=== PATIENT | female | born 1980 | race Hispanic/Latino ===

== ENCOUNTER 2017-05-07 15:41 | Emergency (ER) | payer MEDICAID ==
[2017-05-07 15:52] VITALS: BP 116/73; PULSE 100; RESP 16; TEMP 98.6; O2SAT 97
--- NOTE | 2017-05-07 16:38 | ED PDOC ---
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 Denied head or neck injury. Patient stated she took her Vimpat medication this morning. PMD: Susan Garay MD Past Medical History Reviewed: Historical Data, Nursing Documentation, Vital Signs Vital Signs: Last Vital Signs Temp 98.6 F 05/07/17 15:43 Pulse 100 H 05/07/17 15:43 Resp 16 05/07/17 15:43 BP 116/73 05/07/17 15:43 Pulse Ox 97 05/07/17 16:52 - Medical History PMH: Bronchitis, Seizures Denies: Alzheimer's Disease, Asthma, Atrial Fibrillation, CAD, Cardia Arrhythmia, CHF, COPD, Dementia, Emphysema, HIV, HTN, Hypercholesterolemia, Migraine, Mitral Valve Prolapse, Multiple Sclerosis, Parkinson's Disease, Peripheral Edema, Pneumonia, Pulmonary Embolism, Sleep Apnea, TIA - Surgical History Surgical History: (X 1) Denies: Pacemaker - Family History Family History: States: Unknown Family Hx - Social History Current smoker - smoking cessation education provided: No Ex-Smoker (has not smoked in the last 12 months): Yes Alcohol: None Drugs: Cannabis - Home Medications Home Medications: Ambulatory Orders Medication Instructions Recorded Lacosamide [Vimpat] 100 mg PO BID #60 tab 05/29/14 diaZEpam [Valium] 5 mg PO Q8 PRN #20 tab 10/20/15 traMADol [Ultram] 50 mg PO TID PRN #15 tab 10/20/15 Albuterol/Ipratropium [Duoneb 3 3 ml IH QID PRN #0 neb 11/10/ MG/3 Ml-0.5 MG/3 Ml 3 Ml] Guaifenesin [Mucinex] 600 mg PO Q12 #0 tab.er.12h 11/10/15 Levofloxacin [Levaquin] 750 mg PO DAILY #7 tablet 11/10/15 methylPREDNISolone [Medrol] 16 mg PO DAILY #0 tab 11/10/15 Acetaminophen/Butalbital/Caf 1 - 2 tab PO Q6 PRN #20 tab 01/20/16 [Fioricet] - Allergies Allergies/Adverse Reactions: Allergies Allergy/AdvReac Type Severity Reaction Status Date / Time levetiracetam [From [facility]] Allergy RASH Verified 10/20/15 12:47 Review of Systems ROS Statement: Except As Marked, All Systems Reviewed And Found Negative Musculoskeletal: Negative for: Other (head/neck injury) Neurological: Positive for: Seizures (bit tongue) Physical Exam - Reviewed Nursing Documentation Reviewed: Yes Vital Signs Reviewed: Yes - Physical Exam Appears: Positive for: Well, Non-toxic, No Acute Distress Head Exam: Positive for: ATRAUMATIC, NORMAL INSPECTION, NORMOCEPHALIC Eye Exam: Positive for: EOMI, Normal appearance, PERRL Neck: Positive for: Normal, Painless ROM, Supple. Negative for: Limited ROM Cardiovascular/Chest: Positive for: Regular Rate, Rhythm Respiratory: Positive for: Normal Breath Sounds, Respiratory Distress Extremity: Positive for: Normal ROM Neurologic/Psych: Positive for: Alert (x3), job forwarder II-XII (intact), Oriented - ECG O2 Sat by Pulse Oximetry: 97 (RA) Pulse Ox Interpretation: Normal Medical Decision Making Medical Decision Making: Initial Impression: Seizure disorder Initial Plan: * Motrin 600mg PO Time: 1640 --Patient stated she is feeling better in ED and requesting discharge AMA. The provider has personally explained to the patient that choosing to do so may result in permanent bodily harm or . The provider discussed at great length that without further evaluation and monitoring there may be unforeseen circumstances and/or deterioration causing permanent bodily harm or as a result of their choice. The patient verbalized these risks back to the physician in laymans terms. The patient is alert, oriented, and shows the mental capacity to make clear decisions regarding the patients health care at this time. The patient continues to wish to leave against medical advice. bag making machine operator Quynh Enriqued used for all interpretation, history and exam, along w explaining risks of leaving AMA. Scribe Attestation: Documented by Gretel Serna, acting as a scribe for Edy Xiong III, DO. Provider Scribe Attestation: All medical record entries made by the Scribe were at my direction and personally dictated by me. I have reviewed the chart and agree that the record accurately reflects my personal performance of the history, physical exam, medical decision making, and the department course for this patient. I have also personally directed, reviewed, and agree with the discharge instructions and disposition. Disposition - Clinical Impression Clinical Impression: Seizure disorder, Left against medical advice - Patient ED Disposition Is Patient to be Admitted: No Counseled Patient/Family Regarding: Studies Performed, Diagnosis, Need For Followup - Disposition Referrals: Alvarez Duncan MD [Staff Provider] - Disposition: Against Medical Advice Disposition Time: 16:50 Condition: STABLE Additional Instructions: Take medications as directed. Return to ER for any return of symptoms. YOU LEFT HOSPITAL AGAINST MEDICAL ADVICE TODAY. RETURN AT ANYTIME FOR COMPLETION OF TREATMENT. Instructions: Epilepsy (ED), Against Medical Advice (ED) Forms: [employer] (Spanish)
== END 2017-05-07 17:01 | disposition left against medical advice (07) ==
LOC: H.ER 15:41
DX: G40.909 Epilepsy, unspecified, not intractable, without status epilepticus (principal)

== ENCOUNTER 2017-09-01 14:21 | Emergency (ER) | payer MEDICAID ==
[2017-09-01 16:31] LABS: BASO # 0.1 K/uL (0.0-0.2); BASO % 1.1 % (0.0-2.0); EOS # 0.4 K/uL (0.0-0.7); EOS % 4.2 % (0.0-4.0); LYMPH # 2.2 K/uL (1.0-4.3); LYMPH % 26.3 % (20.0-40.0); MEAN CELL VOLUME 92.3 fl (81.0-99.0); MEAN CORPUSCULAR HGB CONC 32.5 g/dL (33.0-37.0); MONO # 0.5 K/uL (0.0-0.8); MONO % 6.1 % (0.0-10.0); NEUT # 5.3 K/uL (1.8-7.0); NEUT % 62.3 % (50.0-75.0); NRBC % 0.1 % (0.0-0.0); RED CELL DISTRIBUTION WIDTH 14.5 % (11.5-14.5); WHITE BLOOD COUNT 8.5 K/uL (4.8-10.8)
[2017-09-01 16:41] LABS: ALB/GLOB RATIO 1.2 (1.0-2.1); ALCOHOL SERUM < 10 mg/dl (0-10); ALKALINE PHOSPHATASE 94 U/L (38-126); ALT/SGPT 15 U/L (9-52); AST/SGOT 23 U/L (14-36); BILIRUBIN,TOTAL 0.3 mg/dl (0.2-1.3); BLOOD UREA NITROGEN 10 mg/dl (7-17); CALCIUM 9.5 mg/dL (8.4-10.2); CARBON DIOXIDE 13 mmol/L (22-30); CHLORIDE 106 mmol/L (98-107); GFR AFRICAN-AMERICAN > 60; GLUCOSE,RANDOM 161 mg/dL (65-105); LIPASE 264 U/L (23-300); PARTIAL THROMBOPLASTIN TIME 31.5 Seconds (25.6-37.1); POTASSIUM 2.9 MMOL/L (3.6-5.0); SODIUM 141 mmol/l (132-148); TOTAL PROTEIN 8.2 G/DL (6.3-8.2)
[2017-09-01] MEDS ORDERED: Potassium Chloride 20 mEq ER Tab PO ONE ×2 (17:24→18:10)
[2017-09-01] MEDS ORDERED: Sodium Chloride 0.9% 1,000 ML IV ONE (17:24)
[2017-09-01] MEDS ORDERED: Sodium Chloride 0.9% 500 ML IV ONE (17:25)
--- NOTE | 2017-09-01 17:56 | ED PDOC ---
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 denies: Bit Tongue, Incontinence Of Urine, Incontinence Of Stool Post-ictal Period: Yes Severity: Moderate Additional History Per: Patient Past Medical History Reviewed: Historical Data, Nursing Documentation, Vital Signs Vital Signs: Last Vital Signs Temp 97 F L 09/01/17 18:14 Pulse 85 09/01/17 18:14 Resp 17 09/01/17 18:14 BP 126/80 09/01/17 18:14 Pulse Ox 100 09/01/17 18:14 - Medical History PMH: Bronchitis, Seizures Denies: Alzheimer's Disease, Asthma, Atrial Fibrillation, CAD, Cardia Arrhythmia, CHF, COPD, Dementia, Emphysema, HIV, HTN, Hypercholesterolemia, Migraine, Mitral Valve Prolapse, Multiple Sclerosis, Parkinson's Disease, Peripheral Edema, Pneumonia, Pulmonary Embolism, Sleep Apnea, TIA - Surgical History Surgical History: (X 1) Denies: Pacemaker - Family History Family History: States: Unknown Family Hx - Living Arrangements Living Arrangements: With Family - Social History Current smoker - smoking cessation education provided: No - Home Medications Home Medications: Ambulatory Orders Medication Instructions Recorded Lacosamide [Vimpat] 100 mg PO BID #60 tab 05/29/14 diaZEpam [Valium] 5 mg PO Q8 PRN #20 tab 10/20/15 traMADol [Ultram] 50 mg PO TID PRN #15 tab 10/20/15 Albuterol/Ipratropium [Duoneb 3 3 ml IH QID PRN #0 neb 11/10/15 MG/3 Ml-0.5 MG/3 Ml 3 Ml] Guaifenesin [Mucinex] 600 mg PO Q12 #0 tab.er.12h 11/10/15 Levofloxacin [Levaquin] 750 mg PO DAILY #7 tablet 11/10/15 methylPREDNISolone [Medrol] 16 mg PO DAILY #0 tab 11/10/15 Acetaminophen/Butalbital/Caf 1 - 2 tab PO Q6 PRN #20 tab 01/20/16 [Fioricet] Multivit/Folic Acid/I 1 tab PO DAILY #30 tab 04/17/17 [ Plus] - Allergies Allergies/Adverse Reactions: Allergies Allergy/AdvReac Type Severity Reaction Status Date / Time levetiracetam [From [facility]] Allergy RASH Verified 10/20/15 12:47 Review of Systems ROS Statement: Except As Marked, All Systems Reviewed And Found Negative Constitutional: Negative for: Fever, Chills Cardiovascular: Negative for: Chest Pain, Palpitations Respiratory: Negative for: Cough, Shortness of Breath Gastrointestinal: Negative for: Nausea, Vomiting, Abdominal Pain Musculoskeletal: Positive for: Neck Pain Neurological: Positive for: Headache. Negative for: Weakness, Numbness, Confusion, Seizures, Altered Mental Status, Dizziness Physical Exam - Reviewed Nursing Documentation Reviewed: Yes Vital Signs Reviewed: Yes - Physical Exam Appears: Positive for: Uncomfortable Head Exam: Positive for: ATRAUMATIC, NORMAL INSPECTION, NORMOCEPHALIC Eye Exam: Positive for: Normal appearance, EOMI, PERRL ENT: Negative for: Nasal Congestion, Pharyngeal Erythema, Tonsillar Exudate, Tonsillar Swelling Neck: Positive for: Painless ROM, Supple, Pain On Movement Of Neck. Negative for: Decreased ROM, Limited ROM, Trachea Midline Cardiovascular/Chest: Positive for: Regular Rate, Rhythm, Chest Non Tender. Negative for: Edema, Gallop, Murmur, Bradycardia, Tachycardia, Ectopy, Friction Rub, Irregularly Irregular Respiratory: Positive for: Normal Breath Sounds. Negative for: Decreased Breath Sounds, Accessory Muscle Use, Crackles, Rales, Rhonchi, Stridor, Wheezing , Respiratory Distress, Plerual Rub Pulses-Radial (L): 2+ Pulses-Radial (R): 2+ Gastrointestinal/Abdominal: Positive for: Normal Exam, Bowel Sounds, Soft. Negative for: Tenderness, Organomegaly, Mass, Distended, Guarding, Rebound, Hernia, Asicites Back: Positive for: Normal Inspection. Negative for: L CVA Tenderness, R CVA Tenderness, Vertebral Tenderness Extremity: Positive for: Normal ROM. Negative for: Tenderness, Pedal Edema, Calf Tenderness, Deformity, Swelling Neurologic/Psych: Positive for: Alert, instructional technology teacher II-XII, Oriented, Mood/Affect (calm) , Cerebellar Tests (nml). Negative for: Motor/Sensory Deficits, Aphasia, Facial Droop - Laboratory Results Result Diagrams: 09/01/17 16:26 09/01/17 16:26 - ECG O2 Sat by Pulse Oximetry: 96 Pulse Ox Interpretation: Normal - Progress ED Course And Treament: will d/c home. Re-evaluation Time: 20:05 Condition: Improved Disposition - Clinical Impression Clinical Impression: Recurrent seizures - Patient ED Disposition Is Patient to be Admitted: No Counseled Patient/Family Regarding: Studies Performed, Diagnosis, Need For Followup - Disposition Referrals: [facility] [Outside] (2 to 3 days) Disposition: Routine/Home Disposition Time: 20:06 Condition: GOOD Instructions: Recurrent Seizures in Adults (ED) Forms: [employer] (Danish)
[2017-09-01 18:14] VITALS: BP 126/80; PULSE 85; RESP 17; TEMP 97
--- NOTE | 2017-09-01 19:53 | CT ---
EXAM: CT Head Without Intravenous Contrast CLINICAL HISTORY: 37 years old, female; Injury or trauma and signs and symptoms; Injury Seizured/ falling; Initial encounter; Laceration; Without loss of consciousness; Without residual foreign body; Head, generalized; Other: Alberto's neck tenderness; Injury date: Today; Patient HX: Zachery asthma TECHNIQUE: Axial computed tomography images of the head/brain without intravenous contrast. All CT scans at this facility use one or more dose reduction techniques, viz.: automated exposure control; ma/kV adjustment per patient size (including targeted exams where dose is matched to indication; i.e. head); or iterative reconstruction technique. Coronal and sagittal reformatted images were created and reviewed. COMPARISON: CT - HEAD W/O CONTRAST 2016-01-19 23:31 FINDINGS: Brain: No intracranial hemorrhage. No mass. Dilated perivascular space vs chronic lacunar infarct about RIGHT basal ganglia. No edema. Ventricles: No hydrocephalus. Bones/joints: No acute fracture. Soft tissues: Mild parietal soft tissue swelling. Sinuses: No acute sinusitis. Mastoid air cells: No mastoid effusion. Orbits: Unremarkable as visualized. IMPRESSION: 1. No intracranial hemorrhage. 2. Incidental/non-acute findings are described above.
--- NOTE | 2017-09-01 19:56 | CT ---
EXAM: CT Cervical Spine Without Intravenous Contrast CLINICAL HISTORY: 37 years old, female; Injury or trauma; Injury Seizured falling. Alberto's neck tenderness; Initial encounter; Laceration; Without foreign body; Injury date: Today TECHNIQUE: Axial computed tomography images of the cervical spine without intravenous contrast. All CT scans at this facility use one or more dose reduction techniques, viz.: automated exposure control; ma/kV adjustment per patient size (including targeted exams where dose is matched to indication; i.e. head); or iterative reconstruction technique. Coronal and sagittal reformatted images were created and reviewed. COMPARISON: CR - CERVICAL SPINE AP LATERAL 2015-10-20 13:21 FINDINGS: Vertebrae: No acute fracture. Discs/spinal canal/neural foramina: Minimal spondylosis. No significant central canal stenosis. Neuroforaminal narrowing with mid cervical spine. Soft tissues: Unremarkable. Lung apices: Unremarkable as visualized. IMPRESSION: 1. No fracture. 2. Incidental/non-acute findings are described above.
[2017-09-01 20:07] VITALS: O2SAT 96
== END 2017-09-01 20:30 | disposition home or self-care (01) ==
LOC: H.ER 14:21
DX: G40.909 Epilepsy, unspecified, not intractable, without status epilepticus (principal)
CPT/HCPCS: 70450; 72125; 80053; 80320; 80324; 80345; 80346; 80349; 80353; 80358; 80361; 81025; 83690; 83992; 84484; 85025; 85610; 85730; 96374; 99285; J2405; J7040

== ENCOUNTER 2017-09-10 16:06 | Emergency (ER) | payer MEDICAID ==
[2017-09-10 16:21] VITALS: BP 101/54; PULSE 67; RESP 16; TEMP 97.2; O2SAT 100
[2017-09-10] MEDS ORDERED: Sodium Chloride 0.9% 1,000 ML IV SCH (17:15)
--- NOTE | 2017-09-10 17:22 | ED PDOC ---
HPI: Headache Time Seen by Provider: 09/10/17 17:00 Chief Complaint (Nursing): Headache Chief Complaint (Provider): Headache History Per: Patient History/Exam Limitations: no limitations Onset/Duration Of Symptoms: Days (x9) Additional Complaint(s): Margaret Park is a 37 year old female that presents to the ED with a chief complaint of a pounding migraine with associated sharp neck pain that she has been experiencing for the past 9 days. Patient has a history of seizures, and reports that on 09/01/17, she was doing her laundry when she had a seizure. Patient states that she lost consciousness, but upon returning to consciousness reports that she has severe head pain in the middle of her head radiating down her neck. Patient came to ED on 09/01/[address] Scan, which was interpreted as normal, but states that her pain persists, prompting her ED visit. Of Note: Patient is hard of hearing. Neurologist: Dr. Nice Past Medical History Reviewed: Historical Data, Nursing Documentation, Vital Signs Vital Signs: Last Vital Signs Temp 97.2 F L 09/10/17 16:18 Pulse 67 09/10/17 16:18 Resp 16 09/10/17 16:18 BP 101/54 L 09/10/17 16:18 Pulse Ox 100 09/10/17 16:18 - Medical History PMH: Bronchitis, Seizures Denies: Alzheimer's Disease, Asthma, Atrial Fibrillation, CAD, Cardia Arrhythmia, CHF, COPD, Dementia, Emphysema, HIV, HTN, Hypercholesterolemia, Migraine, Mitral Valve Prolapse, Multiple Sclerosis, Parkinson's Disease, Peripheral Edema, Pneumonia, Pulmonary Embolism, Sleep Apnea, TIA - Surgical History Surgical History: (X 1) Denies: Pacemaker - Family History Family History: States: Unknown Family Hx - Home Medications Home Medications: Ambulatory Orders Medication Instructions Recorded Lacosamide [Vimpat] 100 mg PO BID #60 tab 05/29/14 diaZEpam [Valium] 5 mg PO Q8 PRN #20 tab 10/20/15 traMADol [Ultram] 50 mg PO TID PRN #15 tab 10/20/15 Albuterol/Ipratropium [Duoneb 3 3 ml IH QID PRN #0 neb 02/ MG/3 Ml-0.5 MG/3 Ml 3 Ml] Guaifenesin [Mucinex] 600 mg PO Q12 #0 tab.er.12h 11/10/15 Levofloxacin [Levaquin] 750 mg PO DAILY #7 tablet 11/10/15 methylPREDNISolone [Medrol] 16 mg PO DAILY #0 tab 11/10/15 Acetaminophen/Butalbital/Caf 1 - 2 tab PO Q6 PRN #20 tab 01/20/16 [Fioricet] Multivit/Folic Acid/I 1 tab PO DAILY #30 tab 04/17/17 [ Plus] Naproxen 1 tab PO Q12 PRN #14 tab 09/10/17 - Allergies Allergies/Adverse Reactions: Allergies Allergy/AdvReac Type Severity Reaction Status Date / Time levetiracetam [From [facility]] Allergy RASH Verified 09/10/17 16:17 Review of Systems Musculoskeletal: Positive for: Neck Pain Neurological: Positive for: Headache Physical Exam - Reviewed Nursing Documentation Reviewed: Yes Vital Signs Reviewed: Yes - Physical Exam Appears: Positive for: Non-toxic, No Acute Distress Head Exam: Positive for: NORMOCEPHALIC. Negative for: ATRAUMATIC (Tenderness noted to posterior aspect of head, not involving C-Spine.) Skin: Positive for: Normal Color, Warm Eye Exam: Positive for: Normal appearance, EOMI, PERRL Neck: Positive for: Normal, Painless ROM, Supple Neurologic/Psych: Positive for: Alert, Oriented, Gait (Steady). Negative for: Motor/Sensory Deficits, Aphasia, Facial Droop - ECG O2 Sat by Pulse Oximetry: 100 (RA) Pulse Ox Interpretation: Normal - Progress ED Course And Treament: TORADOL 30 MG IV X 1 DOSE WITH MILD RELIEF DECADRON 10 MG IM X [address] IMPRESSION: No acute intracranial hemorrhage. Medical Decision Making Medical Decision Making: Impression: Head Injury Plan: * CT Head w/o contrast * Urine Preg * Toradol 30 mg IV * NaCl 1000 mLs at 1000 mLs/hr * Reevaluation Scribe Attestation: Documented by Krista Moreland, acting as a scribe for Dewayne Matthews PA-C. Provider Scribe Attestation: All medical record entries made by the Scribe were at my direction and personally dictated by me. I have reviewed the chart and agree that the record accurately reflects my personal performance of the history, physical exam, medical decision making, and the department course for this patient. I have also personally directed, reviewed, and agree with the discharge instructions and disposition. Disposition - Clinical Impression Clinical Impression: Headache - Patient ED Disposition Is Patient to be Admitted: No - Disposition Disposition: Routine/Home Disposition Time: 19:24 Condition: FAIR Prescriptions: Naproxen 1 tab PO Q12 PRN #14 tab PRN Reason: Pain, Moderate (4-7) Instructions: Head Injury (ED), Acute Headache (DC) Forms: [employer] (Italian), [facility] ED School/Work Excuse
--- NOTE | 2017-09-10 18:29 | CT ---
PROCEDURE: CT scan brain dated 09/10/2017. HISTORY: HEAD INJURY COMPARISON: None available. TECHNIQUE: Axial computed tomography images were obtained through the head/brain without intravenous contrast. Radiation dose: Total exam DLP = mGy-cm. This CT exam was performed using one or more of the following dose reduction techniques: Automated exposure control, adjustment of the mA and/or kV according to patient size, and/or use of iterative reconstruction technique. FINDINGS: HEMORRHAGE: No acute parenchymal, subarachnoid or extra-axial hemorrhage. BRAIN: No evidence of large acute infarct. VENTRICLES: No obstructive hydrocephalus. CALVARIUM: There are no acute calvarial fractures. PARANASAL SINUSES: Unremarkable as visualized. No significant inflammatory changes. MASTOID AIR CELLS: Unremarkable as visualized. No inflammatory changes. OTHER FINDINGS: None. IMPRESSION: No acute intracranial hemorrhage.
[2017-09-10] MEDS ORDERED: Dexamethasone 4 mg/1 ml ONE (19:30)
== END 2017-09-10 19:47 | disposition home or self-care (01) ==
LOC: H.ER 16:06
DX: S09.90XA Unspecified injury of head, initial encounter (principal); W19.XXXA Unspecified fall, initial encounter; Y92.89 Other specified places as the place of occurrence of the external cause; G40.909 Epilepsy, unspecified, not intractable, without status epilepticus
CPT/HCPCS: 70450; 81025; 96372; 96374; 99284; J1100; J1885; J7040

== ENCOUNTER 2018-02-08 13:13 | Emergency (ER) | payer MEDICAID ==
[2018-02-08 13:43] VITALS: TEMP 98.1; O2SAT 99
[2018-02-08 13:49] VITALS: RESP 18
[2018-02-08 14:33] LABS: BASO # 0.1 K/uL (0.0-0.2); BASO % 1.3 % (0.0-2.0); EOS # 0.3 K/uL (0.0-0.7); EOS % 5.5 % (0.0-4.0); HEMOGLOBIN 12.3 g/dL (12.0-16.0); LYMPH # 1.6 K/uL (1.0-4.3); MEAN CORPUSCULAR HEMOGLOBIN 31.3 pg (27.0-31.0); MEAN CORPUSCULAR HGB CONC 34.8 g/dL (33.0-37.0); MEAN PLATELET VOLUME 7.8 fl (7.2-11.7); MONO # 0.5 K/uL (0.0-0.8); MONO % 9.9 % (0.0-10.0); NEUT # 2.4 K/uL (1.8-7.0); NEUT % 50.3 % (50.0-75.0); NRBC % 0.1 % (0.0-0.0); RBC 3.92 Mil/uL (3.80-5.20); RED CELL DISTRIBUTION WIDTH 14.9 % (11.5-14.5); WHITE BLOOD COUNT 4.8 K/uL (4.8-10.8)
[2018-02-08 14:46] LABS: ALB/GLOB RATIO 1.1 (1.0-2.1); ALT/SGPT 116 U/L (9-52); AST/SGOT 58 U/L (14-36); BLOOD UREA NITROGEN 5 mg/dl (7-17); CALCIUM 9.6 mg/dL (8.4-10.2); GFR AFRICAN-AMERICAN > 60; GFR NON-AFRICAN AMERICAN > 60
--- NOTE | 2018-02-08 15:11 | CT ---
PROCEDURE: CT HEAD WITHOUT CONTRAST. HISTORY: head injury, seizure COMPARISON: Unenhanced head CT 09/10/2017. TECHNIQUE: Axial computed tomography images were obtained through the head/brain without intravenous contrast. Radiation dose: Total exam DLP = 786.68 mGy-cm. This CT exam was performed using one or more of the following dose reduction techniques: Automated exposure control, adjustment of the mA and/or kV according to patient size, and/or use of iterative reconstruction technique. FINDINGS: HEMORRHAGE: No intracranial hemorrhage. BRAIN: Normal barragan-white matter differentiation and density are appreciated throughout the cerebrum and cerebellum with the brainstem appearing unremarkable as well. There is no mass effect. There is no suspicious extra-axial fluid collection and the midline brain anatomy appears diffusely unremarkable. VENTRICLES: Unremarkable. No hydrocephalus. CALVARIUM: Unremarkable. PARANASAL SINUSES: Unremarkable as visualized. No significant inflammatory changes. MASTOID AIR CELLS: Unremarkable as visualized. No inflammatory changes. OTHER FINDINGS: None. IMPRESSION: Stable appearing unremarkable unenhanced head CT.
--- NOTE | 2018-02-08 15:17 | ED PDOC ---
HPI: Headache Time Seen by Provider: 02/08/18 13:46 Chief Complaint (Nursing): Headache Chief Complaint (Provider): Confusion, Dizzines History Per: Patient History/Exam Limitations: no limitations Onset/Duration Of Symptoms: Days (x5) Current Symptoms Are (Timing): Still Present Additional Complaint(s): 37 year old female presented to ED with complaints of confusion and dizziness. Patient reports that on February 04, she was walking in the hallway and the next thing she remembers is waking up in her bed. 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 Her roommate indicates that patient was found on the floor and did not witness her having shaking like movements. Patient's last seizure was May 2017. She further states that she started Vimpat 150mg BID prescribed by Dr. Nice because she developed a rash from Kepra. She denies incontinence, oral injury, vomiting, weakness, CP, and abdominal pain. PCP: Donya Kimble Past Medical History Reviewed: Historical Data, Nursing Documentation, Vital Signs Vital Signs: Last Vital Signs Temp 98.1 F 02/08/18 13:45 Pulse 60 02/08/18 13:45 Resp 18 02/08/18 13:45 BP 110/76 02/08/18 13:45 Pulse Ox 99 02/08/18 13:45 - Medical History PMH: Bronchitis, Seizures Denies: Alzheimer's Disease, Asthma, Atrial Fibrillation, CAD, Cardia Arrhythmia, CHF, COPD, Dementia, Emphysema, HIV, HTN, Hypercholesterolemia, Migraine, Mitral Valve Prolapse, Multiple Sclerosis, Parkinson's Disease, Peripheral Edema, Pneumonia, Pulmonary Embolism, Sleep Apnea, TIA - Surgical History Surgical History: (X 1) Denies: Pacemaker - Family History Family History: States: Unknown Family Hx - Social History Current smoker - smoking cessation education provided: No Alcohol: None Drugs: Denies - Home Medications Home Medications: Ambulatory Orders Medication Instructions Recorded Lacosamide [Vimpat] 100 mg PO BID #60 tab 05/29/14 diaZEpam [Valium] 5 mg PO Q8 PRN #20 tab 10/20/15 traMADol [Ultram] 50 mg PO TID PRN #15 tab 10/20/15 Albuterol/Ipratropium [Duoneb 3 3 ml IH QID PRN #0 neb 11/10/15 MG/3 Ml-0.5 MG/3 Ml 3 Ml] Guaifenesin [Mucinex] 600 mg PO Q12 #0 tab.er.12h 11/10/15 Levofloxacin [Levaquin] 750 mg PO DAILY #7 tablet 11/10/15 methylPREDNISolone [Medrol] 16 mg PO DAILY #0 tab 11/10/15 Acetaminophen/Butalbital/Caf 1 - 2 tab PO Q6 PRN #20 tab 01/20/16 [Fioricet] Multivit/Folic Acid/I 1 tab PO DAILY #30 tab 04/17/17 [ Plus] Naproxen 1 tab PO Q12 PRN #14 tab 09/10/17 Naproxen [Naprosyn] 500 mg PO BID PRN #14 tab 02/08/18 - Allergies Allergies/Adverse Reactions: Allergies Allergy/AdvReac Type Severity Reaction Status Date / Time levetiracetam [From [facility]] Allergy RASH Verified 09/10/17 16:17 Review of Systems ROS Statement: Except As Marked, All Systems Reviewed And Found Negative Constitutional: Negative for: Weakness ENT: Negative for: Other (oral injury) Cardiovascular: Negative for: Chest Pain Gastrointestinal: Negative for: Vomiting, Abdominal Pain Genitourinary Female: Negative for: Incontinence Neurological: Positive for: Confusion, Dizziness Physical Exam - Reviewed Nursing Documentation Reviewed: Yes Vital Signs Reviewed: Yes - Physical Exam Appears: Positive for: Non-toxic, No Acute Distress Head Exam: Positive for: ATRAUMATIC, NORMAL INSPECTION, NORMOCEPHALIC Skin: Positive for: Normal Color, Warm, DRY Eye Exam: Positive for: EOMI, Normal appearance, PERRL ENT: Positive for: Normal ENT Inspection Neck: Positive for: Normal, Painless ROM Cardiovascular/Chest: Positive for: Regular Rate, Rhythm Respiratory: Positive for: CNT, Normal Breath Sounds Gastrointestinal/Abdominal: Positive for: Normal Exam, Soft. Negative for: Tenderness Back: Positive for: Normal Inspection Extremity: Positive for: Normal ROM Neurologic/Psych: Positive for: Alert, Oriented. Negative for: Motor/Sensory Deficits - Laboratory Results Result Diagrams: 02/08/18 14:15 02/08/18 14:15 - ECG O2 Sat by Pulse Oximetry: 99 (RA) Pulse Ox Interpretation: Normal Medical Decision Making Medical Decision Making: Initial Impression: Initial Plan: CT cervical spine CT head ED urine Tylenol 975mg PO Ondansetron 4mg PO 15:[address] FINDINGS: HEMORRHAGE: No intracranial hemorrhage. BRAIN: Normal barragan-white matter differentiation and density are appreciated throughout the cerebrum and cerebellum with the brainstem appearing unremarkable as well. There is no mass effect. There is no suspicious extra-axial fluid collection and the midline brain anatomy appears diffusely unremarkable. VENTRICLES: Unremarkable. No hydrocephalus. CALVARIUM: Unremarkable. PARANASAL SINUSES: Unremarkable as visualized. No significant inflammatory changes. MASTOID AIR CELLS: Unremarkable as visualized. No inflammatory changes. OTHER FINDINGS: None. IMPRESSION: Stable appearing unremarkable unenhanced head CT. 1713 Case d/w Dr. Nice, neurologist, who agrees with care and states pt. is to continue Vimpat and pt. can f/u in his office next week. Scribe Attestation: Documented by Murtaza Kaur acting as a scribe for Kameron Hernandez Provider Scribe Attestation: All medical record entries made by the Scribe were at my direction and personally dictated by me. I have reviewed the chart and agree that the record accurately reflects my personal performance of the history, physical exam, medical decision making, and the department course for this patient. I have also personally directed, reviewed, and agree with the discharge instructions and disposition. Disposition - Clinical Impression Clinical Impression: Breakthrough seizure, Head injury - Patient ED Disposition Is Patient to be Admitted: No - Disposition Referrals: Lilia Albert [Outside] Disposition: Routine/Home Disposition Time: 17:17 Condition: STABLE Additional Instructions: Follow up with Dr. Nice next week without fail Return to ED immediately if symptoms worsen Prescriptions: Naproxen [Naprosyn] 500 mg PO BID PRN #14 tab PRN Reason: Pain Instructions: Closed Head Injury (DC), Epilepsy in Adults Forms: [facility] (Sammarinese) Print Language: CHADIAN
--- NOTE | 2018-02-08 16:54 | CT ---
PROCEDURE: CT Cervical Spine without contrast HISTORY: trauma COMPARISON: None available. TECHNIQUE: Axial computed tomography images were obtained of the cervical spine without the use of intravenous contrast. Coronal and sagittal reformatted images were created and reviewed. Radiation dose: Total exam DLP = 548.53 mGy-cm. This CT exam was performed using one or more of the following dose reduction techniques: Automated exposure control, adjustment of the mA and/or kV according to patient size, and/or use of iterative reconstruction technique. FINDINGS: VERTEBRAE: No fracture. Straightened cervical curvature without spondylolisthesis identified. No destructive bony lesion. DISCS/SPINAL CANAL/NEURAL FORAMINA: No significant central canal or neural foraminal stenosis. Discs heights are grossly preserved. A limited disc osteophyte complex is identified at C5-6 without resulting in significant central canal stenosis. PARASPINAL SOFT TISSUES: Unremarkable. OTHER FINDINGS: None. IMPRESSION: Limited inferior cervical degenerative spondylosis including limited disc osteophyte complex at C5-6 without resulting in significant central canal or neural foraminal stenosis. No gross disc herniation throughout the exam. MRI is available follow-up if clinically warranted.
[2018-02-08 17:33] VITALS: BP 108/65; PULSE 51
== END 2018-02-08 17:37 | disposition home or self-care (01) ==
LOC: H.ER 13:13
DX: S09.90XA Unspecified injury of head, initial encounter (principal); W19.XXXA Unspecified fall, initial encounter; Y92.89 Other specified places as the place of occurrence of the external cause; R56.9 Unspecified convulsions
CPT/HCPCS: 70450; 72125; 80053; 81025; 82550; 85025; 96374; 99285; J1885

== ENCOUNTER 2018-06-06 09:21 | Emergency (ER) | payer MEDICAID ==
[2018-06-06 09:35] VITALS: BMI 23.1
[2018-06-06 09:37] VITALS: RESP 16; TEMP 98.1
--- NOTE | 2018-06-06 09:47 | ED PDOC ---
HPI: Altered Mental Status Time Seen by Provider: 06/06/18 09:25 Chief Complaint (Nursing): Altered Mental Status Chief Complaint (Provider): Altered Mental Status History Per: Patient, [employer] (Sumit #[id number] ) History/Exam Limitations: Clinical Condition Onset/Duration Of Symptoms: Unknown Onset Of Symptoms: Cannot Confirm Onset Description Of Symptoms: Unresponsive Usual Baseline: Unknown Additional Complaint(s): 38 year old deaf female with a history of seizures and bronchitis presents to the ED from evaluation for confusion. 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 She has been treated in this ED before for similar symptoms. Offers no complaints. 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 PMD: Dr. Germain Past Medical History Reviewed: Historical Data, Nursing Documentation, Vital Signs Vital Signs: Last Vital Signs Temp 98.1 F 06/06/18 09:35 Pulse 106 H 06/06/18 09:35 Resp 16 06/06/18 09:35 BP 131/84 06/06/18 09:35 Pulse Ox 97 06/06/18 09:35 - Medical History PMH: Bronchitis, Seizures Denies: Alzheimer's Disease, Asthma, Atrial Fibrillation, CAD, Cardia Arrhythmia, CHF, COPD, Dementia, Emphysema, HIV, HTN, Hypercholesterolemia, Migraine, Mitral Valve Prolapse, Multiple Sclerosis, Parkinson's Disease, Peripheral Edema, Pneumonia, Pulmonary Embolism, Sleep Apnea, TIA - Surgical History Surgical History: (X 1) Denies: Pacemaker - Family History Family History: States: Unknown Family Hx - Home Medications Home Medications: Ambulatory Orders Medication Instructions Recorded Lacosamide [Vimpat] 100 mg PO BID #60 tab 05/29/14 diaZEpam [Valium] 5 mg PO Q8 PRN #20 tab 10/20/15 traMADol [Ultram] 50 mg PO TID PRN #15 tab 10/20/15 Albuterol/Ipratropium [Duoneb 3 3 ml IH QID PRN #0 neb 11/10/15 MG/3 Ml-0.5 MG/3 Ml 3 Ml] Guaifenesin [Mucinex] 600 mg PO Q12 #0 tab.er.12h 11/10/15 Levofloxacin [Levaquin] 750 mg PO DAILY #7 tablet 11/10/15 methylPREDNISolone [Medrol] 16 mg PO DAILY #0 tab 11/10/15 Acetaminophen/Butalbital/Caf 1 - 2 tab PO Q6 PRN #20 tab 01/20/16 [Fioricet] Multivit/Folic Acid/I 1 tab PO DAILY #30 tab 04/17/17 [ Plus] Naproxen 1 tab PO Q12 PRN #14 tab 09/10/17 Naproxen [Naprosyn] 500 mg PO BID PRN #14 tab 02/08/18 - Allergies Allergies/Adverse Reactions: Allergies Allergy/AdvReac Type Severity Reaction Status Date / Time levetiracetam [From Keppra] Allergy RASH Verified 09/10/17 16:17 Review of Systems ROS Statement: Except As Marked, All Systems Reviewed And Found Negative Neurological: Positive for: Altered Mental Status Physical Exam - Reviewed Nursing Documentation Reviewed: Yes Vital Signs Reviewed: Yes - Physical Exam Appears: Positive for: Well, Non-toxic, No Acute Distress Head Exam: Positive for: ATRAUMATIC, NORMAL INSPECTION (mild ecchymosis to forehead), NORMOCEPHALIC Skin: Positive for: Normal Color, Warm, Dry Eye Exam: Positive for: EOMI, Normal appearance, PERRL ENT: Positive for: Normal ENT Inspection Neck: Positive for: Normal, Painless ROM, Supple Cardiovascular/Chest: Positive for: Regular Rate, Rhythm. Negative for: Murmur Respiratory: Positive for: Normal Breath Sounds. Negative for: Wheezing, Respiratory Distress Gastrointestinal/Abdominal: Positive for: Normal Exam, Soft. Negative for: Tenderness Extremity: Positive for: Normal ROM. Negative for: Deformity Neurologic/Psych: Positive for: Alert, crown ironer II-XII, Oriented (x 3), Other (after half an hour in the ER, pt woke up more and started speaking in macedonian and was awake and alert.). Negative for: Motor/Sensory Deficits - Laboratory Results Result Diagrams: 06/06/18 09:39 06/06/18 09:39 - ECG O2 Sat by Pulse Oximetry: 97 (RA) Pulse Ox Interpretation: Normal Medical Decision Making Medical Decision Makin:36 Impression: episode of confusion, resolved r/o seizures, electrolyte abnormality , infection, trauma, intoxication and substance abuse Initial Plan: --CT Head --Labs including Salicylate and Acetaminophen --Urine cx --CXR 10:[address] FINDINGS: HEMORRHAGE: No intracranial hemorrhage. BRAIN: Arauz-white matter differentiation is preserved. There is no mass, mass effect or abnormal extra-axial fluid collection. There is no territorial infarction. The midline sagittal structures are normal. VENTRICLES: The ventricles are normal in size, shape and configuration. CALVARIUM: There is no calvarial fracture or extracranial soft tissue swelling. PARANASAL SINUSES: Predominantly clear. MASTOID AIR CELLS: Predominantly clear. OTHER FINDINGS: None. IMPRESSION: No acute intracranial abnormality. CXR FINDINGS: LUNGS: The lungs are well inflated and clear. PLEURA: No significant pleural effusion identified, no pneumothorax apparent. CARDIOVASCULAR: Normal. OSSEOUS STRUCTURES: No significant abnormalities. VISUALIZED UPPER ABDOMEN: Normal. OTHER FINDINGS: None. IMPRESSION: No active pulmonary disease. No acute findings. 1045 --Patient is now totally awake and alert. 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 Patient does not know what happened in between that event and her arrival to the ED. U tox is negative, rest of labs benign no signs of infection or dehydration Labs were reviewed and reveal no infection, UTI and no significant electrolyte abnormality. 12:[address] Nice, pt's neurologists. He is aware of patient and of the results and said to follow up with him on Sunday in his office. reevaluated pt. pt ambulating around ER in no distress. vitals stable. eating tray of food. verbalizes that she feels fine now. thinks she may have had a seizure but feels well now. alert and oriented. moving all 4 extremities without difficulty, no focal deficits. pt stable for dc home and outpt follow up in [address] Nice. Return precautions provided. 12:40 Mother just came to the Ed. She no longer wants to follow up with Dr. Nice. she wants to change neurologists for the future. Since they already have an appointment on Sunday,i advised them to continue following up with him for now and they can change providers after that appointment. Scribe Attestation: Documented by Simin Martínez, acting as a scribe for Homero Dsouza MD Provider Scribe Attestation: All medical record entries made by the Scribe were at my direction and personally dictated by me. I have reviewed the chart and agree that the record accurately reflects my personal performance of the history, physical exam, medical decision making, and the department course for this patient. I have also personally directed, reviewed, and agree with the discharge instructions and disposition. Disposition - Clinical Impression Clinical Impression: Altered mental status, unspecified, Seizure - Patient ED Disposition Is Patient to be Admitted: No Discussed With .: Narinder Nice Doctor Will See Patient In The: Office Counseled Patient/Family Regarding: Studies Performed, Diagnosis, Need For Followup - Disposition Referrals: Narinder Nice MD [Medical Doctor] - Disposition: Routine/Home Disposition Time: 12:06 Condition: IMPROVED Additional Instructions: follow up with Dr Nice on Sunday in the office. call regarding exact time. continue home medications return to the ED with any worsening or concerning symptoms. Instructions: Seizures Forms: [facility] (Guamanian)
[2018-06-06 09:53] LABS: BASO # 0.1 K/uL (0.0-0.2); EOS # 0.3 K/uL (0.0-0.7); EOS % 3.2 % (0.0-4.0); HEMOGLOBIN 13.1 g/dL (12.0-16.0); LYMPH # 1.6 K/uL (1.0-4.3); LYMPH % 20.7 % (20.0-40.0); MEAN CELL VOLUME 91.7 fl (81.0-99.0); MEAN CORPUSCULAR HEMOGLOBIN 31.6 pg (27.0-31.0); MEAN CORPUSCULAR HGB CONC 34.5 g/dL (33.0-37.0); MEAN PLATELET VOLUME 7.6 fl (7.2-11.7); MONO # 0.7 K/uL (0.0-0.8); MONO % 9.3 % (0.0-10.0); NEUT # 5.1 K/uL (1.8-7.0); NEUT % 65.8 % (50.0-75.0); NRBC % 0.1 % (0.0-0.0); RBC 4.16 Mil/uL (3.80-5.20); RED CELL DISTRIBUTION WIDTH 14.6 % (11.5-14.5); WHITE BLOOD COUNT 7.8 K/uL (4.8-10.8)
[2018-06-06 10:06] LABS: ALBUMIN 4.2 g/dL (3.5-5.0); BLOOD UREA NITROGEN 8 mg/dl (7-17); CALCIUM 9.3 mg/dL (8.4-10.2); GFR NON-AFRICAN AMERICAN > 60
[2018-06-06 10:07] LABS: ALB/GLOB RATIO 1.4 (1.0-2.1); ALT/SGPT 8 U/L (9-52); AST/SGOT 30 U/L (14-36)
--- NOTE | 2018-06-06 10:15 | CT ---
Date of service: 06/06/2018 PROCEDURE: CT HEAD WITHOUT CONTRAST. HISTORY: possible fall COMPARISON: 02/08/2018. TECHNIQUE: Axial computed tomography images were obtained through the head/brain without intravenous contrast. Radiation dose: Total exam DLP = 814.30 mGy-cm. This CT exam was performed using one or more of the following dose reduction techniques: Automated exposure control, adjustment of the mA and/or kV according to patient size, and/or use of iterative reconstruction technique. FINDINGS: HEMORRHAGE: No intracranial hemorrhage. BRAIN: Arauz-white matter differentiation is preserved. There is no mass, mass effect or abnormal extra-axial fluid collection. There is no territorial infarction. The midline sagittal structures are normal. VENTRICLES: The ventricles are normal in size, shape and configuration. CALVARIUM: There is no calvarial fracture or extracranial soft tissue swelling. PARANASAL SINUSES: Predominantly clear. MASTOID AIR CELLS: Predominantly clear. OTHER FINDINGS: None. IMPRESSION: No acute intracranial abnormality.
[2018-06-06 10:33] LABS: ACETAMINOPHEN < 10.0 ug/ml (10.0-30.0); SALICYLATE < 1.0 mg/dl
--- NOTE | 2018-06-06 10:33 | RAD ---
Date of service: 06/06/2018 HISTORY: possible fall COMPARISON: 11/09/2015. FINDINGS: LUNGS: The lungs are well inflated and clear. PLEURA: No significant pleural effusion identified, no pneumothorax apparent. CARDIOVASCULAR: Normal. OSSEOUS STRUCTURES: No significant abnormalities. VISUALIZED UPPER ABDOMEN: Normal. OTHER FINDINGS: None. IMPRESSION: No active pulmonary disease. No acute findings.
[2018-06-06 11:33] LABS: SQUAMOUS EPITHIAL 4 /hpf (0-5); URINE BACTERIA RARE (<OCC); URINE BILIRUBIN NEGATIVE (NEGATIVE); URINE BLOOD SMALL (NEGATIVE); URINE CLARITY SLIGHTY-CLOUDY (Clear); URINE COLOR YELLOW (YELLOW); URINE GLUCOSE (UA) NEG (Normal); URINE HYALINE CAST 0-2 /hpf (0-2); URINE LEUKOCYTE ESTERASE NEG Leu/uL (Negative); URINE PROTEIN NEGATIVE (NEGATIVE); URINE UROBILINOGEN 0.2-1.0 mg/dL (0.2-1.0)
[2018-06-06 12:13] LABS: BARBITURATES, UR NEGATIVE (NEGATIVE); BENZODIAZEPINES, UR NEGATIVE (NEGATIVE); OPIATES, UR NEGATIVE (NEGATIVE); PHENCYCLIDINE, UR NEGATIVE (NEGATIVE)
[2018-06-06 12:58] VITALS: BP 125/72; PULSE 75
[2018-06-06 16:51] VITALS: O2SAT 97
== END 2018-06-06 13:02 | disposition home or self-care (01) ==
LOC: H.ER 09:21
DX: R56.9 Unspecified convulsions (principal)